=== PATIENT | female | born 2000 | race Caucasian/White ===

== ENCOUNTER → 2023-05-08 12:03 | Outpatient (CLI) | payer SELFPAY | PROVIDERS: Referring Provider Family Medicine; Visit Provider Family Medicine | DX: Z23 Encounter for immunization (principal) | CPT/HCPCS: 90471; 90686 ==

== ENCOUNTER → 2023-08-21 13:14 | Outpatient (CLI) | payer OTHER, SELFPAY ==
[2023-08-21 16:07] LABS: Urine N gonorrhoeae NOT DETECTED
[2023-08-21 16:16] LABS: Urine Chlamydia NOT DETECTED
[2023-08-22 07:34] LABS: RPR Screen Non Reactive (Non Reactive)
[2023-08-22 16:37] LABS: Hepatitis B Surface Antigen NEGATIVE s/c (NEGATIVE)
[2023-08-22 16:54] LABS: HIV 1 & 2 Ab/Ag 4th Gen Combo NEGATIVE (NEGATIVE); Hep C Virus Ab w/Reflex Quant NEGATIVE s/c (NEGATIVE)
[2023-08-30 09:22] LABS: HSV1IGG 0.97
[2023-08-30 09:25] LABS: HSV 2 IGG AB < 0.91
== END ==
LOC: LAB 13:15
PROVIDERS: PCP Nurse Practitioner; Referring Provider Nurse Practitioner; Visit Provider Nurse Practitioner
DX: Z11.3 Encounter for screening for infections with a predominantly sexual mode of transmission (principal)
CPT/HCPCS: 36415; 86592; 86695; 86696; 86803; 87340; 87389; 87491; 87591

== ENCOUNTER → 2024-01-30 12:18 | Outpatient (CLI) | payer OTHER, SELFPAY ==
[2024-01-30 12:50] LABS: Add Manual Diff / Slide Review NO; Basophils Absolute Auto 0 /uL (0-100); Basophils Percent Auto 0.3 % (0-2); Eosinophils Absolute Auto 100 /uL (0-450); Eosinophils Percent Auto 1.6 % (2-4); Hematocrit 41.1 % (36-46); Hemoglobin 13.9 g/dL (12.0-16.0); Lymphocytes Absolute Auto 2100 /uL (1100-4500); Lymphocytes Percent Auto 32.1 % (25-40); Mean Corpuscular HGB Conc 33.7 % (30-36); Mean Corpuscular Hemoglobin 28.7 PG (26-34); Mean Corpuscular Volume 85.1 fL (80-100); Monocytes Absolute Auto 400 /uL (0-900); Monocytes Percent Auto 6.4 % (3-14); Neutrophils Absolute Auto 3900 /uL (1500-7000); Neutrophils Percent Auto 59.6 % (50-75); Platelet Count 275 X10^3/uL (150-400); Red Blood Cell Count 4.83 X10^6/uL (4.0-5.2); Red Cell Distribution Width 13.5 % (11.6-14.8); White Blood Cell Count 6.5 X10^3/uL (4.5-11.0)
[2024-01-30 13:08] LABS: Erythrocyte Sedimentation Rate 6 MM/HR (0-20)
[2024-01-30 13:31] LABS: Alanine Aminotransferase 22 IU/L (<35); Albumin 4.7 g/dL (3.5-5.0); Albumin Globulin Ratio 1.5 (1.0-2.8); Alkaline Phosphatase 69 U/L (38-126); Aspartate Aminotransferase 25 IU/L (14-36); BUN Creatinine Ratio 21.5 (6-22); Bilirubin Total 0.6 mg/dL (0.2-1.3); Blood Urea Nitrogen 20 mg/dL (7-17); C-Reactive Protein Quant < 0.5 mg/dL (<1.0); Calcium 9.2 mg/dL (8.4-10.2); Carbon Dioxide 25 mmol/L (22-32); Chloride 107 mmol/L (98-107); Estimated Glomerular Filt Rate > 60 mL/min (>60); Globulin 3.2 g/dL (1.7-4.1); Glucose 88 mg/dL (70-100); HEMOLYSIS < 15 (0-50); Potassium 4.2 mmol/L (3.4-5.1); Sodium 139 mmol/L (137-145); Total Protein 7.9 g/dL (6.3-8.2)
[2024-01-30 13:45] LABS: Free T3, Triiodothyronine Free 4.01 pg/mL (2.77-5.27)
[2024-01-30 13:59] LABS: Thyroid Stimulating Hormone 2.13 uIU/mL (0.47-4.68)
[2024-01-30 15:40] LABS: Follicle Stimulating Hormone 5.96 mIU/mL; Luteinizing Hormone 14.8 mIU/mL
== END ==
PROVIDERS: PCP Nurse Practitioner; Referring Provider Nurse Practitioner; Visit Provider Nurse Practitioner
DX: R21 Rash and other nonspecific skin eruption (principal); D89.89 Other specified disorders involving the immune mechanism, not elsewhere classified
CPT/HCPCS: 36415; 80053; 83001; 83002; 84439; 84443; 84481; 85025; 85651; 86038; 86140

== ENCOUNTER → 2024-05-28 08:27 | Outpatient (CLI) | payer OTHER, SELFPAY ==
--- NOTE | 2024-05-28 08:28 | DI.US.S_ITS ---
PROCEDURE: US PELVIC COMPLETE INDICATIONS: POLYCYSTIC OVARIAN SYNDROME. AMENORRHEA DAY 70. TECHNIQUE: Real-time scanning was performed of the pelvic organs, with image documentation. Additional endovaginal scanning was necessary due to incomplete visualization of the adnexal and endometrial structures by transabdominal scanning. COMPARISON: None. FINDINGS: Uterus: Uterus is anteverted and normal in size at 7.5 x 5.1 x 3.9 cm. The myometrium is homogeneous. The endometrium measures 9 mm combined thickness. Nabothian cysts are present at the cervix. Ovaries: The right ovary measures 4.2 x 3.0 x 2.3 cm, with a calculated ovarian volume of 14.7 cc. The left ovary measures 4.3 x 2.9 x 2.4 cm, with a calculated ovarian volume of 15.6 cc. The ovaries have a normal sonographic appearance. Approximately 18 follicles are present in the right ovary. Greater than 20 follicles are present in the left ovary. No adnexal masses are seen. There is a 2.5 cm dominant follicle in the left ovary. Other: No pathologic free abdominal or pelvic fluid. IMPRESSION: 1. Polycystic ovarian morphology of the left ovary. 2. Otherwise, no sonographic abnormality of the uterus or ovaries. We strive to produce accurate, complete, and clear reports of imaging services. To assist us in improving patient care, this report was composed using standard report templates and voice recognition software. Therefore, it may contain abnormal punctuation, insertions and/or omissions. Occasional wrong-word or sound-alike substitutions may occur. Though we review the report and make efforts to correct it, we do recommend that the report be read carefully in proper context to recognize any text inaccuracies. Dictated by: Soham Gallagher M.D. on 05/28/2024 at 11:41 Approved by: Soham Gallagher M.D. on 05/28/2024 at 11:46
== END ==
LOC: US 08:27
PROVIDERS: PCP Nurse Practitioner Family; Referring Provider Nurse Practitioner Family; Visit Provider Nurse Practitioner Family
DX: N92.6 Irregular menstruation, unspecified (principal); N97.0 Female infertility associated with anovulation; E28.2 Polycystic ovarian syndrome
CPT/HCPCS: 76830; 76856

== ENCOUNTER → 2024-06-12 12:19 | Outpatient (CLI) | payer OTHER, SELFPAY ==
--- NOTE | 2024-06-12 12:20 | DI.RAD.S_ITS ---
PROCEDURE: XR ANKLE LT MIN 3V INDICATIONS: Ground level fall TECHNIQUE: 3 views of the ankle were acquired. COMPARISON: None. FINDINGS: Bones: There are no fractures or other osseous abnormalities. Tibiotalar and talocalcaneal joints: Normal in width and alignment . There may be distention of the anterior synovium of the ankle mortise or perhaps a periarticular cyst of approximately 1.5 cm dimension Soft tissues: No soft tissue swelling, calcification or mass. IMPRESSION: Periarticular cyst or ganglion adjacent to the anterior ankle mortise. If further imaging evaluation is required suggest MRI Dictated by: Archie Law M.D. on 06/15/2024 at 9:35 Approved by: Archie Law M.D. on 06/15/2024 at 9:37
== END ==
PROVIDERS: PCP Nurse Practitioner Family; Referring Provider Nurse Practitioner Family; Visit Provider Nurse Practitioner Family
DX: S93.402A Sprain of unspecified ligament of left ankle, initial encounter (principal); W10.9XXA Fall (on) (from) unspecified stairs and steps, initial encounter
CPT/HCPCS: 73610

== ENCOUNTER → 2024-06-24 16:12 | Outpatient (CLI) | payer OTHER, SELFPAY | LOC: LAB 16:13 | PROVIDERS: PCP Nurse Practitioner Family; Referring Provider Nurse Practitioner Family; Visit Provider Nurse Practitioner Family | DX: Z77.011 Contact with and (suspected) exposure to lead (principal) | CPT/HCPCS: 36415; 83655 ==

== ENCOUNTER → 2024-07-13 11:07 | Outpatient (CLI) | payer OTHER, SELFPAY ==
--- NOTE | 2024-07-13 11:08 | DI.RAD.S_ITS ---
PROCEDURE: XR FINGER RT MIN 2V INDICATIONS: pain distal 1st IP joint, switch blade knife cut 2 mos ago TECHNIQUE: AP hand, 2 views of the 1st finger(s) acquired. COMPARISON: None. FINDINGS: Bones: No fractures or dislocations. No suspicious bony lesions. Soft tissues: No suspicious soft tissue calcifications. IMPRESSION: No visualized acute fracture or dislocation. However, if clinical concern and/or pain persist, short interval imaging followup in 7-10 days is recommended, as occult injury cannot be definitively excluded. Dictated by: Haylee Barnett M.D. on 07/13/2024 at 22:58 Approved by: Haylee Barnett M.D. on 07/13/2024 at 22:58
== END ==
PROVIDERS: PCP Nurse Practitioner Family; Referring Provider Physician Assistant; Visit Provider Physician Assistant
DX: S69.90XA Unspecified injury of unspecified wrist, hand and finger(s), initial encounter (principal); X58.XXXA Exposure to other specified factors, initial encounter
CPT/HCPCS: 73140

== ENCOUNTER → 2024-09-07 07:55 | Outpatient (CLI) | payer OTHER, SELFPAY ==
[2024-09-07 08:23] LABS: Add Manual Diff / Slide Review NO; Basophils Absolute Auto 0 /uL (0-100); Basophils Percent Auto 0.8 % (0-2); Eosinophils Absolute Auto 100 /uL (0-450); Eosinophils Percent Auto 2.9 % (2-4); Hemoglobin 13.4 g/dL (12.0-16.0); Lymphocytes Absolute Auto 1700 /uL (1100-4500); Lymphocytes Percent Auto 34.3 % (25-40); Mean Corpuscular HGB Conc 33.5 % (30-36); Mean Corpuscular Hemoglobin 28.9 PG (26-34); Mean Corpuscular Volume 86.3 fL (80-100); Monocytes Absolute Auto 300 /uL (0-900); Monocytes Percent Auto 6.3 % (3-14); Neutrophils Absolute Auto 2700 /uL (1500-7000); Neutrophils Percent Auto 55.7 % (50-75); Platelet Count 262 X10^3/uL (150-400); Red Blood Cell Count 4.64 X10^6/uL (4.0-5.2); Red Cell Distribution Width 12.6 % (11.6-14.8); White Blood Cell Count 4.8 X10^3/uL (4.5-11.0)
[2024-09-07 08:52] LABS: Vitamin D 25 Hydroxy (D3) 55.6 ng/mL (30.0-100.0)
[2024-09-07 09:08] LABS: Thyroid Stimulating Hormone < 0.015 uIU/mL (0.47-4.68)
[2024-09-14 07:36] LABS: Testosterone % Fr + Wkly bound 14.7 % (3.0-18.0); Testosterone Fr+Wkly bound 3.6 ng/dL (0.0-9.5); Testosterone, Total 24.6 ng/dL (10.0-55.0)
[2024-09-18 06:05] LABS: % Free Progesterone 2.8 % (.); Free Progesterone <0.28 ng/dL (.); Progesterone, Serum <10 ng/dL (.)
== END ==
PROVIDERS: PCP Nurse Practitioner Family; Referring Provider Obstetrics & Gynecology; Visit Provider Nurse Practitioner Family
DX: E55.9 Vitamin D deficiency, unspecified (principal); D64.9 Anemia, unspecified; E28.2 Polycystic ovarian syndrome
CPT/HCPCS: 36415; 82306; 82627; 83498; 84144; 84403; 84439; 84443; 84999; 85025

== ENCOUNTER → 2024-10-08 14:26 | Outpatient (CLI) | payer OTHER, SELFPAY ==
[2024-10-09 18:38] LABS: Tissue Transglutaminase IgA <2 U/mL (0-3)
== END ==
LOC: LAB 14:27
PROVIDERS: PCP Family Medicine; Referring Provider Family Medicine; Visit Provider Family Medicine
DX: R21 Rash and other nonspecific skin eruption (principal)
CPT/HCPCS: 36415; 83516

== ENCOUNTER → 2024-11-04 09:25 | Outpatient (CLI) | payer OTHER, SELFPAY ==
[2024-11-05 18:08] LABS: Anti Thyroglobulin Antibody 14.2 IU/mL (0.0-0.9)
[2024-11-06 12:09] LABS: Thyroid Peroxidase Antibodies 115 IU/mL (0-34)
== END ==
PROVIDERS: PCP Family Medicine; Referring Provider Family Medicine; Visit Provider Family Medicine
DX: E03.8 Other specified hypothyroidism (principal)
CPT/HCPCS: 36415; 84439; 84443; 86376; 86800

== ENCOUNTER → 2024-12-14 07:53 | Outpatient (CLI) | payer OTHER, SELFPAY ==
[2024-12-14 09:45] LABS: TSH w/ Reflex to FT4 8.56 uIU/mL (0.47-4.68)
[2024-12-14 10:09] LABS: Free T4, Direct Thyroxine 1.11 ng/dL (0.78-2.19)
== END ==
LOC: LAB 07:54
PROVIDERS: PCP Family Medicine; Referring Provider Family Medicine; Visit Provider Family Medicine
DX: E03.8 Other specified hypothyroidism (principal)
CPT/HCPCS: 36415; 84439; 84443

== ENCOUNTER → 2025-01-04 07:26 | Outpatient (CLI) | payer OTHER, SELFPAY ==
--- NOTE | 2025-01-04 07:27 | DI.US.S_ITS ---
PROCEDURE: US THYROID INDICATIONS: hashimotos - continual sore throat TECHNIQUE: Real-time scanning was performed of the thyroid gland, with image documentation. COMPARISON: None. FINDINGS: Thyroid: Right lobe measures 5.2 x 1.5 x 1.4 cm. Left lobe measures 5.1 x 1.6 x 0.8 cm. Isthmus is 0.3 cm thick. Echotexture is heterogeneous. Increased in vascularity. No significant thyroid nodules. IMPRESSION: Thyroid gland is heterogeneous with hyperemia. No significant thyroid nodules. Dictated by: Drew Jaime M.D. on 01/04/2025 at 10:45 Approved by: Drew Jaime M.D. on 01/04/2025 at 10:47
== END ==
PROVIDERS: PCP Family Medicine; Referring Provider Family Medicine; Visit Provider Family Medicine
DX: E06.3 Autoimmune thyroiditis (principal); R68.89 Other general symptoms and signs
CPT/HCPCS: 76536

== ENCOUNTER → 2025-02-03 07:24 | Outpatient (CLI) | payer OTHER, SELFPAY ==
--- NOTE | 2025-02-03 07:26 | DI.US.S_ITS ---
PROCEDURE: US OB <= 14 WEEKS FETUS INDICATIONS: DATING VIABILITY OUTSIDE/PRIOR DATING DATA: Last menstrual period (LMP): 12/20/2024. LMP-based estimated date of delivery (VINEET): 09/26/2025. TECHNIQUE: Real-time scanning was performed of the fetus and maternal pelvic organs, with image documentation. Endovaginal scanning was also performed to better visualize the fetus and maternal ovaries. COMPARISON: None. FINDINGS: Embryo: A gestational sac is seen measuring 1.3 cm containing a yolk sac, consistent 6 weeks and 1 day. No pole is identified. Heart rate: No pole is identified. Maternal organs: Ovaries are within normal limits, right ovarian corpus luteal cyst. IMPRESSION: Gestational sac is seen containing a yolk sac. No pole is identified. Recommend follow-up ultrasound in 7-14 days to assess viability. We strive to produce accurate, complete, and clear reports of imaging services. To assist us in improving patient care, this report was composed using standard report templates and voice recognition software. Therefore, it may contain abnormal punctuation, insertions and/or omissions. Occasional wrong-word or sound-alike substitutions may occur. Though we review the report and make efforts to correct it, we do recommend that the report be read carefully in proper context to recognize any text inaccuracies. Dictated by: Carroll Ragland M.D. on 02/03/2025 at 8:43 Approved by: Carroll Ragland M.D. on 02/03/2025 at 8:45
== END ==
LOC: US 07:26
PROVIDERS: PCP Nurse Practitioner; Referring Provider Nurse Practitioner Obstetrics & Gynecology; Visit Provider Nurse Practitioner Obstetrics & Gynecology
DX: O36.80X0 Pregnancy with inconclusive fetal viability, not applicable or unspecified (principal)
CPT/HCPCS: 76801; 76817

== ENCOUNTER → 2025-02-04 08:43 | Outpatient (CLI) | payer OTHER, SELFPAY ==
[2025-02-04 11:09] LABS: HCG Quantitative /Beta subunit 22726 mIU/mL
== END ==
PROVIDERS: PCP Family Medicine; Referring Provider Nurse Practitioner Obstetrics & Gynecology; Visit Provider Nurse Practitioner Obstetrics & Gynecology
DX: N91.2 Amenorrhea, unspecified (principal)
CPT/HCPCS: 36415; 84702

== ENCOUNTER → 2025-02-15 13:59 | Outpatient (CLI) | payer OTHER, SELFPAY ==
--- NOTE | 2025-02-15 14:01 | DI.US.S_ITS ---
PROCEDURE: US OB <= 14 WEEKS FETUS INDICATIONS: BLEEDING OUTSIDE/PRIOR DATING DATA: Last menstrual period (LMP): 12/20/24. LMP-based estimated date of delivery (VINEET): 09/26/25. First dating scan (date and location): 02/03/25. Estimated date of delivery (VINEET) from first dating scan: Not applicable. TECHNIQUE: Real-time scanning was performed of the fetus and maternal pelvic organs, with image documentation. Endovaginal scanning was also performed to better visualize the fetus and maternal ovaries. COMPARISON: [facility], , OB <= 14 WEEKS FETUS, 02/03/2025, 7:44. FINDINGS: Embryo: pole is now present with a crown-rump length of 3.4 mm corresponding to a six week 0 day gestation. There is no detectable blood flow. Cardiac tracing was not obtained. Yolk sac is identified. Maternal organs: Right ovary contains a corpus luteum. Left ovary appears normal. No suspicious adnexal masses or fluid. The cervix appears closed. IMPRESSION: pole identified with crown-rump length corresponding to a six week 0 day gestation. of uncertain viability. This may still be an early viable given appearance of pole. Continued follow-up clinically and with beta HCG levels is recommended. We strive to produce accurate, complete, and clear reports of imaging services. To assist us in improving patient care, this report was composed using standard report templates and voice recognition software. Therefore, it may contain abnormal punctuation, insertions and/or omissions. Occasional wrong-word or sound-alike substitutions may occur. Though we review the report and make efforts to correct it, we do recommend that the report be read carefully in proper context to recognize any text inaccuracies. Dictated by: Ivett Sexton M.D. on 02/15/2025 at 17:13 Approved by: Ivett Sexton M.D. on 02/15/2025 at 17:25
== END ==
PROVIDERS: PCP Family Medicine; Referring Provider Nurse Practitioner Obstetrics & Gynecology; Visit Provider Nurse Practitioner Obstetrics & Gynecology
DX: O20.0 Threatened abortion (principal); O36.80X0 Pregnancy with inconclusive fetal viability, not applicable or unspecified
CPT/HCPCS: 76801; 76817

== ENCOUNTER 2025-02-23 13:22 | Day surgery (SDC) | payer OTHER, SELFPAY ==
[2025-02-19 09:33] VITALS: BMI 28.9
[2025-02-23] VITALS (8 sets, daily range): BP systolic 119–136; BP diastolic 64–89; PULSE 55–78; RESP 12–23; TEMP 36.2–36.6; O2SAT 96–100; BMI 28.9
--- NOTE | 2025-02-23 | PATH_ITS ---
[facility] Accession Number: [id number] No. of containers..01 Tissue . 01 Material submitted: . product of conception - PRODUCTS OF CONCEPTION . 01 Diagnosis: PRODUCTS OF CONCEPTION: Chorionic villi, decidualized tissue and blood clots, consistent with products of conception. No atypical trophoblastic proliferation identified. [facility] 03/01/2025 1028 Local . 01 Electronically signed: . Mamta Harris MD, Pathologist NPI- [id number] . 01 Gross description: . Received in formalin with two identifiers and products of conception, are multiple fragments of hogan, spongy to membranous, soft tissue admixed with mucohemorrhagic material aggregating to 9.6 x 9.3 x 2.7 cm. No tissue is identified. [employer] sections are submitted in A1-A2. ([id number]) /MRV 02/25/2025 1338 Local . 01 Pathologist provided ICD-10: O02.1 . 01 CPT . 446247 Specimen Comment: A courtesy copy of this report has been sent to [phone] Performed at: [address] [id number] MD Tyson Delcid MD Phone: [phone]
--- NOTE | 2025-02-23 | DI.US.S_ITS ---
PROCEDURE: US OB TRANSVAGINAL INDICATIONS: Confirm non-viable prior to Humberto Guerrero. OUTSIDE/PRIOR DATING DATA: Last menstrual period (LMP): 12/20/2024. LMP-based estimated date of delivery (VINEET): 09/24/2025. TECHNIQUE: Real-time scanning was performed of the fetus, with image documentation. Endovaginal scanning: Performed for additional evaluation COMPARISON: [facility], OB <= 14 WEEKS FETUS, 02/15/2025, 15:31. [facility], OB <= 14 WEEKS FETUS, 02/03/2025, 7:44. FINDINGS: No visible pole can be seen. No cardiac activity is seen. A yolk sac can be seen. There is an irregularly-shaped gestational sac seen. IMPRESSION: This study confirms no viable . No pole is seen. No cardiac activity. Dictated by: Shun Huynh M.D. on 02/23/2025 at 13:44 Approved by: Shun Huynh M.D. on 02/23/2025 at 13:46
[2025-02-23] MEDS: LACTATED RINGERS 1,000 ML 42 ML IV (13:30)
--- NOTE | 2025-02-23 14:49 | P.HPOB_ITS ---
History of Present Illness History of Present Illness Reason for admission: missed Narrative: Sharon Gurrola is a 24 year old primigravida, LMP 12/20/2024, admitted now at 9+ 2 weeks gestational age by LMP established VINEET of 09/26/2025. Patient has been cared for by [facility] throughout her thus far and she has been found to have little to no growth of her gestational sac over the last 2-3 weeks, falling HCGs, and non viability confirmed by ultrasound today prior to scheduled suction curettage: 02/23/2025 PROCEDURE: US OB TRANSVAGINAL INDICATIONS: Confirm non-viable prior to Humberto Guerrero. OUTSIDE/PRIOR DATING DATA: Last menstrual period (LMP): 12/20/2024. LMP-based estimated date of delivery (VINEET): 09/24/2025. TECHNIQUE: Real-time scanning was performed of the fetus, with image documentation. Endovaginal scanning: Performed for additional evaluation COMPARISON: [facility], US OB <= 14 WEEKS FETUS, 02/15/2025, 15:31. [facility], US OB <= 14 WEEKS FETUS, 02/03/2025, 7:44. FINDINGS: No visible pole can be seen. No cardiac activity is seen. A yolk sac can be seen. There is an irregularly-shaped gestational sac seen. IMPRESSION: This study confirms no viable . No pole is seen. No cardiac activity. She has not experienced any vaginal bleeding thus far and her blood type is pending at the time of this dictation. [facility] Medical History (Updated 02/23/25 @ 15:04 by Delroy Kaufman MD) History of melanoma Radu's thyroiditis Subclinical hypothyroidism Loss of hearing Social History household members: spouse Smoking Status: Never smoker alcohol intake: never Meds Home Medications and Allergies Home Medications ?Medication ?Instructions ?Recorded ?Confirmed ?Type wipe out pads See Rx Instructions .Route 0 03/18/24 02/04/25 Rx .COMPLEX #1 ea levothyroxine 88 mcg tablet 88 mcg PO DAILY 02/23/25 0 02/23/25 History Allergies Allergy/AdvReac Type Severity Reaction Status Date / Time Sulfa (Sulfonamide Allergy Mild Hives/vomit Verified 02/23/25 13:47 Antibiotics) ing codeine AdvReac Mild hyperactivi Verified 02/23/25 13:47 ty Review of Systems Review of Systems Narrative: Problem-specific ROS positives included in HPI Exam Vital Signs (past 8 hours): - 02/23/25 13:50 Pulse Rate 78 Respiratory Rate 16 Blood Pressure 128/88 Pulse Oximetry 100 Oxygen Delivery Method Room Air Oxygen Delivery Method Room Air Const General: cooperative and comfortable Nutritional Appearance: average body habitus Orientation: alert and oriented x3 HENMT Head: normal to inspection, atraumatic and abrasion Ears: hearing grossly normal bilaterally Face and sinus: face symmetric Eyes General: appearance normal, both eyes and all related structures Conjunctivae: conjunctivae normal Sclera: sclerae normal EOM: EOM intact bilaterally Neck Neck: normal visual inspection Resp Effort & Inspection: normal respiratory effort and able to speak in complete sentences Auscultation: clear to auscultation bilaterally Cardio Rate: regular rate Rhythm: regular rhythm Heart Sounds: S1 normal, S2 normal and no murmurs GI Inspection: normal to inspection Palpation: soft and no hepatosplenomegaly External Female Exam: other (No significant bleeding noted) Extrem General: no calf tenderness Psych Appearance: grossly normal Mental Status: mental status grossly normal Speech and Movement: speech and movement normal Mood: congruent mood Affect: normal affect Attitude: cooperative Thought Process: normal Thought Content: normal Judgment: judgment good Assessment & Plan Assessment and plan (1) Missed with demise before 20 completed weeks of gestation: Status: Acute Plan Patient counseled regarding alternatives, risks, benefits, and potential complications associated with suction curettage of the uterus for missed abortio n. With full understanding of the above, a written consent was executed, signed, and witnessed this date. Time-Based Coding :: [TOTAL MINUTES] spent with patient and on the chart (including review of chart, obtaining history, exam, reviewing outside data, placing orders, documenting exam and treatment plan, and counseling patient) on [DATE].
--- NOTE | 2025-02-23 14:55 | SUR.OPER ---
Lithotomy on padded OR bed, head on pillow, arms secured on padded arm boards at <90 degrees abduction. Legs secured in padded yellow fins stirrups.
--- NOTE | 2025-02-23 15:11 | PM.PREOP ---
Pre-operative Note COVID-19 COVID-19 status: Not tested Interval Note History & Physical reviewed/Exam performed by Physician: Yes Changes to H&P: No
--- NOTE | 2025-02-23 16:14 | PM.GYNOP.1 ---
Operative Date/Time/Diagnoses Date of procedure: 02/23/25 Time of procedure: 15:10 Pre-op diagnosis: Missed , 1st trimester Post-op diagnosis: same Procedure & Clinicians Procedure: Procedures Operation Date: 02/23/25 14:45 Actual Procedure Side Surgeon p Suction Dilation and Curettage Delroy Kaufman MD Indications: Sharon Gurrola is a 24 year old primigravida, LMP 12/20/2024, admitted now at 9+ 2 weeks gestational age by LMP established VINEET of 09/26/2025. Patient has been cared for by [facility] throughout her thus far and she has been found to have little to no growth of her gestational sac over the last 2-3 weeks, falling HCGs, and non viability confirmed by ultrasound today prior to scheduled suction curettage: 02/23/2025 PROCEDURE: US OB TRANSVAGINAL INDICATIONS: Confirm non-viable prior to D C. Thanks. OUTSIDE/PRIOR DATING DATA: Last menstrual period (LMP): 12/20/2024. LMP-based estimated date of delivery (VINEET): 09/24/2025. TECHNIQUE: Real-time scanning was performed of the fetus, with image documentation. Endovaginal scanning: Performed for additional evaluation COMPARISON: [facility], US OB <= 14 WEEKS FETUS, 02/15/2025, 15:31. [facility], US OB <= 14 WEEKS FETUS, 02/03/2025, 7:44. FINDINGS: No visible pole can be seen. No cardiac activity is seen. A yolk sac can be seen. There is an irregularly-shaped gestational sac seen. IMPRESSION: This study confirms no viable . No pole is seen. No cardiac activity. She has not experienced any vaginal bleeding thus far and her blood type is B+. Surgeon: Delroy Kaufman Anesthesia Type: General Operative Notes Findings: Pre evacuation, the uterus palpates to 6-8 weeks gestational age. Post evacuation, the uterus is approximately 6 weeks in size and firm. Closure Type: not applicable Specimen(s): products of conception Applied: none Estimated blood loss (mL): 75 Blood products transfused: none Procedure in detail: With the patient under satisfactory general endotracheal anesthesia in the modified dorsal lithotomy position, the pelvis, perineum, and lower abdomen were prepped and draped in the usual fashion for D&C. A pre-surgical safety time-out was then taken in accordance with [facility] OR protocols. The patient was given 10 units Pitocin IM. A bivalve speculum was inserted in the vagina and the cervix visualized. The anterior lip of the cervix was grasped with a single-tooth tenaculum and the endocervical canal was sequentially dilated to 10 mm. A 9 mm curved suction curette was then introduced into the endometrial cavity and suction applied. Several passes with the suction curette were required for complete evacuation of the uterus and prior to initiating the curettage itself, the patient received 10 units of Pitocin IM along with Methergine 0.2 mg IM. Once complete evacuation of the uterine cavity was assured, the tenaculum was removed from the anterior lip of the cervix and the puncture site on the left required placement of a Allis clamp for 90 seconds to render the site completely hemostatic. At that point the speculum was removed from the vagina and the procedure terminated. The patient was then awakened from anesthesia and transferred to the PACU for a period of observation and recovery having tolerated the procedure well. Complications: none Post-operative Condition: stable Disposition: PACU Plan for aftercare: Routine post-op care and follow-up in 2 weeks or as needed.
[2025-02-23] MEDS: ACETAMINOPHEN 325 MG TABLET 975 MG PO (16:33)
[2025-02-23] MEDS: OXYCODONE IR 5 MG TABLET PO (16:34)
--- NOTE | 2025-02-23 17:17 | SUR.PHASEII ---
1650 Pt states she ready to go and denies nausea and pain. Pt being discharged with .
== END 2025-02-23 17:00 | disposition home or self-care (01) ==
PROVIDERS: PCP Family Medicine; Referring Provider Family Medicine; Visit Provider Obstetrics & Gynecology
PROC: (CPT 58120; principal; 2025-02-23 14:45)
DX: O02.1 Missed abortion (principal); Z3A.09 9 weeks gestation of pregnancy
CPT/HCPCS: 59820; 76817; J1100; J1885; J2250; J2405; J2590; J2704; J3010

== ENCOUNTER → 2025-07-12 09:27 | Outpatient (CLI) | payer OTHER, SELFPAY ==
[2025-07-12 10:22] LABS: Add Manual Diff / Slide Review NO; Hematocrit 38.6 % (36-46); Hemoglobin 12.8 g/dL (12.0-16.0); Lymphocytes Absolute Auto 2000 /uL (1100-4500); Mean Corpuscular HGB Conc 33.2 % (30-36); Mean Corpuscular Hemoglobin 27.9 PG (26-34); Mean Corpuscular Volume 84.0 fL (80-100); Platelet Count 235 X10^3/uL (150-400)
[2025-07-12 10:56] LABS: Alanine Aminotransferase 22 IU/L (<35); Albumin 4.2 g/dL (3.5-5.0); Albumin Globulin Ratio 1.4 (1.0-2.8); Alkaline Phosphatase 64 U/L (38-126); Blood Urea Nitrogen 12 mg/dL (7-17); Calcium 9.4 mg/dL (8.4-10.2); Carbon Dioxide 25 mmol/L (22-32); Chloride 107 mmol/L (98-107); Cholesterol 177 mg/dL (140-199); Estimated Glomerular Filt Rate > 60 mL/min (>60); Globulin 2.9 g/dL (1.7-4.1); Glucose 94 mg/dL (70-99); HDL Cholesterol 72 mg/dL (40-60); HEMOLYSIS < 15 (0-50); Potassium 4.3 mmol/L (3.4-5.1); Sodium 140 mmol/L (137-145); Total Protein 7.1 g/dL (6.3-8.2); Triglycerides 116 mg/dL (35-150)
[2025-07-12 11:06] LABS: Free T4, Direct Thyroxine 1.17 ng/dL (0.78-2.19)
[2025-07-12 11:20] LABS: Thyroid Stimulating Hormone 2.13 uIU/mL (0.47-4.68)
== END ==
PROVIDERS: PCP Family Medicine; Referring Provider Family Medicine; Visit Provider Family Medicine
DX: Z13.220 Encounter for screening for lipoid disorders (principal); E06.3 Autoimmune thyroiditis; F41.9 Anxiety disorder, unspecified; R53.83 Other fatigue; R25.2 Cramp and spasm
CPT/HCPCS: 36415; 80053; 80061; 84439; 84443; 85025